=== PATIENT | female | born 1965 | race Caucasian/White ===

== ENCOUNTER 2018-04-10 01:32 | Emergency (ER) | payer OTHER ==
[~2018-04-10] VITALS: Ht 160 cm; Wt 81.7 kg
[2018-04-10] MEDS ORDERED: AMITRIPTYLINE H10 M3 PO (01:42)
[2018-04-10] MEDS ORDERED: PHENERGAN 25 MG25 M1 PO (02:37)
[2018-04-10] MEDS ORDERED: ZPAK PO (02:37)
[2018-04-10] MEDS ORDERED: SUDOGEST SINUS1 EACH PO (02:37)
[2018-04-10] MEDS ORDERED: ACETAMINOPHEN-1 EAC1 PO (02:37)
[2018-04-10] MEDS ORDERED: PREDNISONE50 MG PO (02:52)
[2018-04-10 03:00] VITALS: BP 133/89
== END 2018-04-10 03:05 | disposition home or self-care (01) ==
LOC: M.ERS 01:32
DX: J40 Bronchitis, not specified as acute or chronic (principal); F17.210 Nicotine dependence, cigarettes, uncomplicated; Z98.890 Other specified postprocedural states; Z88.1 Allergy status to other antibiotic agents